=== PATIENT | female | born 1990 | race Caucasian/White ===

== ENCOUNTER 2017-01-29 12:19 | Emergency (ER) | payer BC ==
--- NOTE | 2017-01-29 12:46 | UC ---
Abdominal Pain Female HPI - HPI Summary HPI Summary: patient had twins 8 months ago via c section, she has had on and off right sided abdominal pain for the past 3 months, this week it has become pretty constant. feels like a clamping, denies fever, dysuria or change in bowel habits - History of Current Complaint Stated Complaint: ABDOMINAL PAIN Time Seen by Provider: 01/29/17 12:34 Hx Obtained From: Patient Hx Last Menstrual Period: 07/26/15 Onset/Duration: Gradual Onset, Still Present Timing: Constant Severity Initially: Moderate Severity Currently: Severe Pain Intensity: 7 Pain Scale Used: 0-10 Numeric Location: Diffuse - right side of abdomen Radiates: No Character: Aching, Cramping Aggravating Factor(s): Nothing Alleviating Factor(s): Nothing Associated Signs and Symptoms: Positive: Negative Allergies/Adverse Reactions: Allergies Allergy/AdvReac Type Severity Reaction Status Date / Time Amoxicillin Allergy Intermediate Rash Verified 12/12/15 08:31 Cefaclor [From Ceclor] Allergy Intermediate Rash Verified 12/12/15 08:31 PMH/Surg Hx/FS Hx/Imm Hx Previously Healthy: Yes - Surgical History Surgical History: Yes Surgery Procedure, Year, and Place: gallbladder 11/2014 - Family History Known Family History: Positive: None, Hypertension - Social History Alcohol Use: None Substance Use Type: None Smoking Status (MU): Never Smoked Tobacco Review of Systems Constitutional: Negative Skin: Negative Eyes: Negative ENT: Negative Respiratory: Negative Cardiovascular: Negative Gastrointestinal: Abdominal Pain Genitourinary: Negative Motor: Negative Neurovascular: Negative Musculoskeletal: Negative Neurological: Negative Psychological: Negative All Other Systems Reviewed And Are Negative: Yes Physical Exam Triage Information Reviewed: Yes Appearance: Well-Appearing, Well-Nourished, Pain Distress Vital Signs Reviewed: Yes Eye Exam: Normal Eyes: Positive: Conjunctiva Clear ENT Exam: Normal ENT: Positive: Normal ENT inspection, Hearing grossly normal, Pharynx normal, TMs normal Dental Exam: Normal Neck exam: Normal Neck: Positive: Supple, Nontender, No Lymphadenopathy Respiratory Exam: Normal Respiratory: Positive: Chest non-tender, Lungs clear, Normal breath sounds Cardiovascular Exam: Normal Cardiovascular: Positive: RRR, No Murmur, Pulses Normal Abdomen Description: Positive: No Organomegaly, Soft, Other: - no palpable masses, no rebound tenderness, no distension or guarding. neg CVA tenderness, Neg obturator sign Bowel Sounds: Positive: Present Musculoskeletal Exam: Normal Musculoskeletal: Positive: Strength Intact, ROM Intact, No Edema Neurological Exam: Normal Neurological: Positive: Alert, Muscle Tone Normal Psychological Exam: Normal Skin Exam: Normal Abd Pain Female Course/Dx - Course Course Of Treatment: hx obtained, exam performed, meds reviewed UA and Urine obtained. - Differential Dx/Diagnosis Differential Diagnosis: Pelvic Inflammatory Disease, Renal Colic, Urinary Tract Infection Provider Diagnoses: abdominal pain. dehydration Discharge - Discharge Plan Condition: Stable Disposition: HOME Patient Education Materials: Dehydration (ED) Additional Instructions: Increase your fluid intake, It is recommended that you get half your weight in mls of water daily. Start taking regular ibuprofen 400 mg every 4-6 hours or naproxen 1-2 tabs twice a day for a week to see if your pain starts to subside. If you develop any fever or nausea please follow up other serrato follow up with your PCP at the end of january.
[2017-01-29 13:26] VITALS: BP 119/72
== END 2017-01-29 13:27 | disposition home or self-care (01) ==
LOC: UCCORT 12:19
DX: R10.84 Generalized abdominal pain (principal); E86.0 Dehydration; Z32.02 Encounter for pregnancy test, result negative; Z88.1 Allergy status to other antibiotic agents; Z90.49 Acquired absence of other specified parts of digestive tract
CPT/HCPCS: 81025; 99212; G0463

== ENCOUNTER 2017-12-27 08:07 | Emergency (ER) | payer BC, OTHER ==
[2017-12-27 08:26] VITALS: BP 122/73
--- NOTE | 2017-12-27 08:44 | UC ---
Respiratory Complaint HPI - HPI Summary HPI Summary: 10 DAYS OF COUGH, CHEST CONGESTION/TIGHTNESS, NASAL DISCHARGE, ST, EAR PAIN, FATIGUE. FEELS ACHY. DENIES FEVER. NO TRINIDAD. FEELS SHE IS GETTING WORSE OVER PAST 3 DAYS. FEELS SHE CAN NOT GET A FULL BREATH DUE TO CHEST FEELING HEAVY. DENIES CP, NAUSEA, SWEATS. - History of Current Complaint Chief Complaint: UCRespiratory Stated Complaint: COUGH/SOB/CHEST CONGESTION Time Seen by Provider: 12/27/17 08:34 Hx Obtained From: Patient Hx Last Menstrual Period: DOES NOT HAVE REG PERIODS. USES DEPO Onset/Duration: Gradual Onset, Lasting Days, Still Present Timing: Constant Severity Initially: Moderate Severity Currently: Moderate Pain Intensity: 3 Pain Scale Used: 0-10 Numeric Character: Cough: Nonproductive Aggravating Factors: Nothing Alleviating Factors: Nothing Associated Signs And Symptoms: Positive: URI, Nasal Congestion, Hoarseness - Allergies/Home Medications Allergies/Adverse Reactions: Allergies Allergy/AdvReac Type Severity Reaction Status Date / Time Amoxicillin Allergy Intermediate Rash Verified 12/27/17 08:16 Cefaclor [From [facility]] Allergy Intermediate Rash Verified 12/27/17 08:16 Home Medications: Home Medications Acetaminophen TAB* [Tylenol TAB*] 650 mg PO Q4H PRN 12/27/17 [History Confirmed 12/27/17] Medroxyprogesterone Acetate (C [Depo-Provera Contraceptiv] 150 mg IM 12/27/17 [ History] Pseudoephedrine-Guaifenesin [Mucinex D 60-600 mg] 1 tab PO PRN 12/27/17 [History ] PMH/Surg Hx/FS Hx/Imm Hx - Additional Past Medical History Additional PMH: ALLERGIES Psychological History: Anxiety - Surgical History Surgical History: Yes Surgery Procedure, Year, and Place: gallbladder 11/2014. WISDOM TEETH EXTRACTIONS. - Family History Known Family History: Positive: Hypertension - Social History Alcohol Use: None Substance Use Type: None Smoking Status (MU): Never Smoked Tobacco Review of Systems Constitutional: Fatigue ENT: Sore Throat, Ear Ache, Nasal Discharge Respiratory: Shortness Of Breath, Cough Cardiovascular: Negative Gastrointestinal: Negative Musculoskeletal: Myalgia All Other Systems Reviewed And Are Negative: Yes Physical Exam Triage Information Reviewed: Yes Appearance: No Pain Distress, Well-Nourished, Ill-Appearing - MILD Vital Signs: Initial Vital Signs Temp 98.8 F 12/27/17 08:18 Pulse 93 12/27/17 08:18 Resp 20 12/27/17 08:18 BP 122/73 12/27/17 08:18 Pulse Ox 100 12/27/17 08:18 Vital Signs Reviewed: Yes Eyes: Positive: Conjunctiva Clear ENT: Positive: Hearing grossly normal, Pharynx normal, TMs normal Neck: Positive: Supple, Nontender, No Lymphadenopathy Respiratory Exam: Normal Cardiovascular: Positive: Tachycardia Abdomen Description: Positive: Soft Musculoskeletal: Positive: No Edema Neurological: Positive: Alert Psychological: Positive: Age Appropriate Behavior Skin: Negative: rashes UC Diagnostic Evaluation - Laboratory O2 Sat by Pulse Oximetry: 100 Respiratory Course/Dx - Differential Dx/Diagnosis Provider Diagnoses: ACUTE BRONCHITIS Discharge - Discharge Plan Condition: Stable Disposition: HOME Prescriptions: Albuterol HFA INHALER* [Ventolin HFA Inhaler*] 2 puff INH Q4H PRN #1 mdi PRN Reason: Shortness Of Breath Azithromycin 500 mg PO DAILY #5 tab Benzonatate CAP* [Tessalon CAP*] 1 - 2 cap PO TID PRN #30 cap PRN Reason: Cough predniSONE TAB* [Deltasone TAB*] 40 mg PO DAILY #10 tab Patient Education Materials: Acute Bronchitis (ED) Referrals: Sheba Kuhn [Nurse Practitioner] - If Needed Additional Instructions: YOUR SYMPTOMS MAY BE VIRALLY MEDIATED BUT GIVEN THE LENGTH OF TIME YOU HAVE BEEN ILL WE WILL COVER YOU WITH ANTIBIOTICS. IF YOU START THE MEDICINE BE SURE TO TAKE IT FOR THE FULL COURSE. REST, HYDRATE, OTC MEDS NEEDED. WILL ALSO TREAT WITH PREDNISONE TO HELP WITH AIRWAY INFLAMMATION AND COUGH MEDICINE. SEEK FOLLOW-UP WITH YOUR PCP IF YOU ARE NOT IMPROVING OVER THE NEXT 1-2 WEEKS.
== END 2017-12-27 08:58 | disposition home or self-care (01) ==
LOC: UCCORT 08:07
DX: J20.9 Acute bronchitis, unspecified (principal)
CPT/HCPCS: 99212; G0463

== ENCOUNTER 2019-04-19 16:56 | Emergency (ER) | payer OTHER ==
[2019-04-19 17:07] VITALS: BP 120/72
--- NOTE | 2019-04-19 17:16 | UC ---
General HPI - HPI Summary HPI Summary: c/o sinus congestion, post nasal dripping, ST, coughing, bi-lat ear fullness, on /off headache for the past 5 days. Denies fever. txing with Tylenol cold medication. - History of Current Complaint Chief Complaint: UCRespiratory Stated Complaint: ST,SINUS CONCERN Time Seen by Provider: 04/19/19 17:01 Hx Obtained From: Patient Hx Last Menstrual Period: pt on depo and states not getting a menses Onset/Duration: Gradual Onset Timing: Constant Pain Intensity: 0 Associated Signs & Symptoms: Negative: Chest Pain, SOB, Wheezing - Allergy/Home Medications Allergies/Adverse Reactions: Allergies Allergy/AdvReac Type Severity Reaction Status Date / Time amoxicillin Allergy Rash Verified 04/19/19 17:07 cefaclor Allergy Rash Verified 04/19/19 17:07 Home Medications: Home Medications Guaifen/Phenyleph/Acetaminophn [Tylenol Sinus Severe Caplet] 2 each PO ONCE PRN 04/19/19 [History Confirmed 04/19/19] LevoCETirizine TAB (NF) [Xyzal TAB (NF)] 5 mg PO DAILY 04/19/19 [History Confirmed 04/19/19] PMH/Surg Hx/FS Hx/Imm Hx Psychological History: Anxiety - Surgical History Surgical History: Yes Surgery Procedure, Year, and Place: gallbladder 11/2014. WISDOM TEETH EXTRACTIONS. - Family History Known Family History: Positive: None, Hypertension - Social History Alcohol Use: None Substance Use Type: None Smoking Status (MU): Never Smoked Tobacco - Immunization History Vaccination Up to Date: Yes Review of Systems All Other Systems Reviewed And Are Negative: Yes ENT: Positive: Sore Throat, Ear Ache, Sinus Congestion Respiratory: Positive: Cough Physical Exam Triage Information Reviewed: Yes Appearance: Well-Appearing Vital Signs: Initial Vital Signs Temp 99.9 F 04/19/19 17:04 Pulse 101 04/19/19 17:04 Resp 22 04/19/19 17:04 BP 120/72 04/19/19 17:04 Pulse Ox 100 04/19/19 17:04 Vital Signs Reviewed: Yes Eyes: Positive: Conjunctiva Clear ENT: Positive: Pharyngeal erythema, Nasal congestion, Nasal drainage - clear, TMs normal, Uvula midline. Negative: Trismus, Muffled voice, Hoarse voice, Sinus tenderness Neck: Positive: Supple, Nontender, No Lymphadenopathy Respiratory: Positive: Lungs clear, Normal breath sounds, No respiratory distress. Negative: Crackles, Rhonchi, Wheezing Cardiovascular: Positive: RRR, No Murmur. Negative: Tachycardia Abdomen Description: Positive: Nontender Musculoskeletal: Positive: ROM Intact Neurological: Positive: Alert Psychological: Positive: Age Appropriate Behavior Skin Exam: Normal Diagnostics - Laboratory Lab Results: rapid strep=negative Course/Dx - Differential Dx - Multi-Symptom Differential Diagnoses: Other - no concern for pneumonia. rapid strep=negative. non toxic and no tachycardia on exam. antibiotics not indicated - Diagnoses Provider Diagnosis: URI (upper respiratory infection), Bronchitis Discharge - Sign-Out/Discharge Documenting (check all that apply): Patient Departure All imaging exams completed and their final reports reviewed: No Studies - Discharge Plan Condition: Stable Disposition: HOME Patient Education Materials: Upper Respiratory Infection (DC), Acute Bronchitis (ED) Referrals: Sheba Kuhn [Primary Care Provider] - Additional Instructions: FOLLOW UP IF NOT BETTER IN 5-7 DAYS OR SOONER IF WORSE. - Billing Disposition and Condition Condition: STABLE Disposition: Home
== END 2019-04-19 17:35 | disposition home or self-care (01) ==
LOC: UCCORT 16:56
DX: J06.9 Acute upper respiratory infection, unspecified (principal); J40 Bronchitis, not specified as acute or chronic; Z88.0 Allergy status to penicillin; Z88.1 Allergy status to other antibiotic agents
CPT/HCPCS: 87651; 99211; G0463